=== PATIENT | male | born 1995 | race African-American/Black ===

== ENCOUNTER 2016-06-14 14:40 | Emergency (ER) | payer MEDICAID, OTHER ==
[~2016-06-14] VITALS: Ht 188 cm; Wt 72.6 kg
[2016-06-14 15:12] VITALS: BP 122/86
[2016-06-14] MEDS ORDERED: Bicillin LA 2,400,000 units IM ONE (15:15)
[2016-06-14] MEDS ORDERED: Ketorolac 30mg Inj IM ONE (15:15)
[2016-06-14] MEDS ORDERED: AUGMENTIN 500-1 EACH ORAL (15:27)
[2016-06-14 15:35] VITALS: BP 122/86
--- NOTE | 2016-06-14 21:12 | Emergency Room Report ---
History of Present Illness General Chief Complaint: Skin Rash/Abscess Source: Family Member Present Illness HPI The patient is a 21-year-old nonverbal male brought in by parents for facial swelling which they noticed this morning. The patient has a history of autism and is unable to provide any history. The mother states that the patient has not been eating presumably due to pain. The mother denies any other known symptoms including fever, chills, nausea, vomiting, rash, altered level of consciousness, cough Allergies: Coded Allergies: No Known Allergies (Unverified , 07/12/12) Patient History Past Medical History: see triage record Pertinent Family History: none Reviewed Nursing Documentation: PMH: Agreed, PSxH: Agreed Nursing Documentation-PMH Past Medical History: No History, Except For Review of Systems All Other Systems: negative except mentioned in HPI Physical Exam Vital Signs Date Time Temp Pulse Resp B/P Pulse Ox O2 Delivery O2 Flow Rate FiO2 06/14/16 14:58 100.0 110 20 122/86 98 Room Air Sp02 EP Interpretation: reviewed, normal General Appearance: no apparent distress, alert, GCS 15, non-toxic Head: normocephalic, atraumatic Eyes: bilateral eye PERRL, bilateral eye normal inspection ENT: hearing grossly normal, other - TTP and edema to the L lower jaw Neck: normal inspection, full range of motion, supple Respiratory: chest non-tender, lungs clear, normal breath sounds, no respiratory distress, no accessory muscle use, no wheezing Cardiovascular #1: regular rate, rhythm, no edema Neurologic: alert, responsive, sensory intact Skin: normal color, no rash, warm/dry, well hydrated Lymphatic: no adenopathy Medical Decision Making PA Attestation Dr. Renee is my supervising physician. Patient management was discussed with my supervising physician Diagnostic Impression: Primary Impression: Dental abscess ER Course The patient is a 21-year-old nonverbal male brought in by parents for facial swelling Diagnoses considered but not limited to: Dental hanna, dental abscess, toothache , gingivitis Physical exam: Afebrile. In no apparent distress. Patient withdraws during exam. Unable to visualize inside mouth with help of both parents and nurse. There is tenderness to palpation of the left face over the premolars. Overlying edema. No erythema. No cervical lymphadenopathy Otherwise exam is unremarkable The patient is given a shot of penicillin G. ER precautions are given and the patient will see dentist as soon as possible. Patient given a prescription for Augmentin. Last Vital Signs Date Time Temp Pulse Resp B/P Pulse Ox O2 Delivery O2 Flow Rate FiO2 06/14/16 15:35 100.0 88 20 122/86 98 Room Air Status: improved Disposition: HOME, SELF-CARE Condition: Improved Scripts Amoxicillin/Potassium Clav 500-125 Tablet* (AUGMENTIN 500-125 TABLET*) 1 Each Tablet 1 TAB ORAL THREE TIMES A DAY, #15 TAB Prov: KRISSY NUNEZ 06/14/16 Referrals: ROSA GORE Patient Instructions: Dental Abscess Additional Instructions: I discussed my findings with the patient's family. All questions and concerns have been answered. Treatment and medication compliance have been addressed. I advised the patient that they need to follow up with PMD in 3-5 days. Return to ED if symptoms worsen, new symptoms arise, or if needed for any reason. Patient verbalized understanding of discharge instructions. The family of the patient are advised he needs to see a dentist as soon as possible KRISSY NUNEZ Jun 14, 2016 21:12
== END 2016-06-14 15:30 | disposition home or self-care (01) ==
LOC: EMR 15:14
DX: K04.7 Periapical abscess without sinus (principal)
CPT/HCPCS: 96372; 99283; J1885

== ENCOUNTER 2016-08-15 02:22 | Emergency (ER) | payer MEDICAID, OTHER ==
[~2016-08-15] VITALS: Ht 188 cm; Wt 75.3 kg
[~2016-08-15 02:22] MED LIST: AUGMENTIN 500-1 EACH ORAL
[2016-08-15 02:40] VITALS: BP 123/78
[2016-08-15] MEDS ORDERED: ZYPREXA10 MG ORAL (02:46)
[2016-08-15] MEDS ORDERED: VALPROIC A250 MG/5 M PO ×2 (02:46→02:56)
--- NOTE | 2016-08-15 02:57 | Emergency Room Report ---
History of Present Illness General Chief Complaint: Seizure Source: Family Member Present Illness HPI Is a 21-year-old male with history of mental delay and seizure. He take valproic acid for it. He presents with a small seizure. He was brought in by mom. She said that eyes rolled back. He had mild shaking. It was not a full- blown tonic-clonic seizure activity. His been out of his valproic acid the last 2 days. The reason for this was that the Was not on the bottle and they spilled it. No other complaint. No fever. Allergies: Coded Allergies: No Known Allergies (Unverified , 08/15/16) Patient History Past Medical History: see triage record, old chart reviewed, seizures Past Surgical History: none Pertinent Family History: none Social History: Denies: smoking Immunizations: UTD, other Reviewed Nursing Documentation: PMH: Agreed, PSxH: Agreed Nursing Documentation-PMH Past Medical History: No History, Except For Hx Neurological Problems: Yes - Autism Hx Seizures: Yes Review of Systems Eye: Denies: blurred vision, eye pain ENT: Denies: ear pain, nose congestion, throat swelling Respiratory: Denies: cough, shortness of breath Cardiovascular: Denies: chest pain, palpitations Gastrointestinal: Denies: abdominal pain, diarrhea, nausea, vomiting Musculoskeletal: Denies: back pain, joint pain Skin: Denies: rash Neurological: Denies: headache, numbness Endocrine: Denies: increased thirst, increased urine Hematologic/Lymphatic: Denies: easy bruising All Other Systems: negative except mentioned in HPI Physical Exam Vital Signs Date Time Temp Pulse Resp B/P Pulse Ox O2 Delivery O2 Flow Rate FiO2 08/15/16 02:36 82 22 123/78 98 Room Air vitals normal Sp02 EP Interpretation: reviewed, normal General Appearance: well appearing, no apparent distress, alert Head: normocephalic, atraumatic Eyes: bilateral eye EOMI, bilateral eye PERRL ENT: hearing grossly normal, normal pharynx Neck: full range of motion, supple, no meningismus Respiratory: chest non-tender, lungs clear, normal breath sounds Cardiovascular #1: regular rate, rhythm, no murmur Gastrointestinal: normal bowel sounds, non tender, no mass, no organomegaly, no bruit, non-distended Musculoskeletal: back normal, gait/station normal, normal range of motion Psychiatric: mood/affect normal Skin: warm/dry Medical Decision Making Diagnostic Impression: Primary Impression: Seizure disorder ER Course Patient presents with seizure. This is due to lack meds. will dc home. Last Vital Signs Date Time Temp Pulse Resp B/P Pulse Ox O2 Delivery O2 Flow Rate FiO2 08/15/16 02:36 82 22 123/78 98 Room Air Status: improved Disposition: HOME, SELF-CARE Condition: Stable Scripts Valproate Sodium (VALPROIC ACID) 250 Mg/5 Ml Solution 500 MG PO BID for 30 Days, ML Prov: ZOIE NICOLE M.D. 08/15/16 Patient Instructions: Seizure, Adult Additional Instructions: followup with your Dr. in 7 days. Return if symptom worsen. ZOIE NICOLE M.D. Aug 15, 2016 02:57
[2016-08-15 03:20] VITALS: BP 123/78
== END 2016-08-15 03:20 | disposition home or self-care (01) ==
LOC: EMR 02:55
DX: G40.909 Epilepsy, unspecified, not intractable, without status epilepticus (principal); Z91.14 Patient's other noncompliance with medication regimen; F84.0 Autistic disorder
CPT/HCPCS: 99283

== ENCOUNTER 2017-09-02 11:20 | Emergency (ER) | payer MEDICAID ==
[~2017-09-02] VITALS: Ht 172.7 cm; Wt 81.6 kg
[~2017-09-02 11:20] MED LIST changes: +VALPROIC A250 MG/5 M PO; +ZYPREXA10 MG ORAL
[2017-09-02] MEDS ORDERED: ZyPREXA Zydis 10mg tab ORAL ONE (11:45)
[2017-09-02] MEDS ORDERED: Valproic Acid 250mg/5ml Liquid ORAL ONE (11:45)
--- NOTE | 2017-09-02 11:52 | Emergency Room Report ---
History of Present Illness General Chief Complaint: Medication Refill Source: Family Member Present Illness HPI Family ran out of meds yesterday. The new MD they were referred to was unable to see, evaluate and treat the patient due to his autism. Off meds, he gets more agitated. Eating well, no NVD, no cough, no fever, change in bowels, head trauma. Mom states he is at baseline with slightly more agitation due to no meds. Autism Seizures, no recent seizures. Allergies: Coded Allergies: No Known Allergies (Unverified , 08/15/16) Patient History Limited by: medical condition Past Medical History: see triage record, old chart reviewed Social History: Denies: smoking, alcohol use Social History Narrative at home Reviewed Nursing Documentation: PMH: Agreed; PSxH: Agreed Nursing Documentation-PMH Past Medical History: No History, Except For Hx Seizures: Yes Review of Systems All Other Systems: limited Physical Exam Vital Signs Date Time Temp Pulse Resp B/P (MAP) Pulse Ox O2 Delivery O2 Flow Rate FiO2 09/02/17 11:36 16 Sp02 EP Interpretation: other - unable to obtain (requested VS with assistance from security) General Appearance: mild distress Eyes: bilateral eye PERRL ENT: moist mucus membranes Neck: full range of motion Respiratory: lungs clear, normal breath sounds Cardiovascular #1: tachycardia Gastrointestinal: normal inspection, scaphoid Musculoskeletal: gait/station normal, other - arms flexed with some possible pill rolling of hands - more clenched Neurologic: alert, other - honking type vocalization, repetative and pacing, 5/ 5 strength, not follow commands, redirected by Mom Psychiatric: other - mildly agitated Skin: other - vitiligo, no evidence of trauma Medical Decision Making Diagnostic Impression: Primary Impression: Encounter for medication refill Additional Impressions: Autism Tachycardia ER Course Extremely difficult patient to evaluate. Mom states "baseline" except that slightly more agitation due to lack of medications. Not febrile with no evidence of occult infection. Will give medications here and check VS. VS with tachycardia, rest normal. Not appear volume depleted. Pulse ox normal as interpreted by me. Medications refilled. Advised of need for outpatient MD. Patient stable for outpatient observation and treatment. Last Vital Signs Date Time Temp Pulse Resp B/P (MAP) Pulse Ox O2 Delivery O2 Flow Rate FiO2 09/02/17 12:45 97.6 120 16 120/99 99 Room Air 97.6 Status: improved Disposition: HOME, SELF-CARE Condition: Improved Scripts Olanzapine (Zyprexa Zydis) 10 Mg Tab.rapdis 10 MG ORAL DAILY, #30 TAB 0 Refills Prov: Balbir Renee M.D. 09/02/17 Valproate Sodium (VALPROIC ACID) 250 Mg/5 Ml Solution 500 MG PO BID for 30 Days, ML Prov: Balbir Renee M.D. 09/02/17 Balbir Renee M.D. September 02, 2017 11:52
[2017-09-02] MEDS ORDERED: VALPROIC A250 MG/51 PO (11:57)
[2017-09-02] MEDS ORDERED: ZYPREXA ZYDIS10 MG ORAL (11:57)
[2017-09-02 12:07] VITALS: BP 120/99
[2017-09-02 12:45] VITALS: BP 120/99
== END 2017-09-02 12:30 | disposition home or self-care (01) ==
LOC: EMR 12:14
DX: Z76.0 Encounter for issue of repeat prescription (principal); F84.0 Autistic disorder; R00.0 Tachycardia, unspecified
CPT/HCPCS: 99284